=== PATIENT | female | born 1990 | race Caucasian/White ===

== ENCOUNTER 2016-12-24 15:37 | Emergency (ER) | payer MEDICAID, OTHER ==
[2016-12-24 15:38] VITALS: BMI 28.3
[2016-12-24 17:25] LABS: RBC URINE 3 /hpf (0-3); URINE BACTERIA RARE (<OCC); URINE BILIRUBIN NEGATIVE (NEGATIVE); URINE BLOOD NEGATIVE (NEGATIVE); URINE COLOR Yellow (YELLOW); URINE GLUCOSE (UA) NORMAL (Normal); URINE KETONE TRACE mg/dL (NEGATIVE); URINE LEUKOCYTE ESTERASE NEG Leu/uL (Negative); URINE PROTEIN NEGATIVE (NEGATIVE); WBC URINE 4 /hpf (0-5)
[2016-12-24] MEDS ORDERED: Albuterol 0.083% Inhal Sol (2.5 mg/3 mL) UD IH STA (17:35)
[2016-12-24] MEDS ORDERED: Albuterol 0.083% Inhal Sol (2.5 mg/3 mL) UD ONE (17:39)
--- NOTE | 2016-12-24 17:42 | C.PDOC ---
History Of Present Illness 26 yo female come in for evaluation of generalized bodyaches, malaise, chills, low grade fever, productive cough with clear sputum gradually developed for past few 3 days. Pt admits, use OTC medication without improvement. Otherwise, pt denies high fever, chills, headache, dizziness, neck apin, drooling, dysphagia, dyspnea, SOB, wheezing, abd. pain, V/D, UTI sx, denies recent travel or sick contact. At the time of evaluation, appears in pain. Time Seen by Provider: 12/24/16 15:54 Chief Complaint (Nursing): Cough, Cold, Congestion History Per: Patient Onset/Duration Of Symptoms: Gradual Current Symptoms Are (Timing): Worse Past Medical History Reviewed: Historical Data, Nursing Documentation, Vital Signs Vital Signs: Last Vital Signs Temp 98.7 F 12/24/16 15:48 Pulse 99 H 12/24/16 15:48 Resp 20 12/24/16 15:48 BP 113/75 12/24/16 15:48 Pulse Ox 99 12/24/16 15:48 - Medical History PMH: No Chronic Diseases, Gastritis Denies: Depression Surgical History: No Surg Hx - [facility] Procedures MONITORING NOS (09/13/14) Family History: States: No Known Family Hx - Social History Hx Tobacco Use: No Hx Alcohol Use: No Hx Substance Use: No - Immunization History Hx Tetanus Toxoid Vaccination: No Hx Influenza Vaccination: No Hx Pneumococcal Vaccination: No Review Of Systems Except As Marked, All Systems Reviewed And Found Negative. Constitutional: Positive for: Fever, Chills, Malaise ENT: Positive for: Nose Congestion, Throat Pain. Negative for: Ear Discharge Cardiovascular: Negative for: Chest Pain, Palpitations, Edema, Light Headedness Respiratory: Positive for: Cough. Negative for: Shortness of Breath, Wheezing Gastrointestinal: Positive for: Nausea. Negative for: Vomiting, Abdominal Pain , Diarrhea Musculoskeletal: Negative for: Neck Pain, Back Pain Skin: Negative for: Rash Neurological: Negative for: Weakness, Numbness, Altered Mental Status, Headache , Dizziness Physical Exam - Physical Exam Appears: Well, Non-toxic, No Acute Distress Skin: Normal Color, Warm, Dry, No Rash Eye(s): bilateral: Normal Inspection Ear(s): Bilateral: Normal Nose: Discharge (B/L nasal congestio nwith scant clear rhinorhea.) Oral Mucosa: Moist, No Drooling, No Trismus Tongue: Normal Appearing Throat: Erythema (mild B/L), No Exudate, No Drooling Neck: Normal, Normal ROM, Supple Chest: Symmetrical Cardiovascular: Rhythm Regular Respiratory: Normal Breath Sounds, No Stridor, No Wheezing Gastrointestinal/Abdominal: Normal Exam, Soft, No Tenderness, No Distention, No Guarding, No Rebound Back: Normal Inspection, No CVA Tenderness, No Vertebral Tenderness Extremity: Normal ROM, No Pedal Edema, No Deformity Neurological/Psych: Oriented x3, Normal Speech ED Course And Treatment O2 Sat by Pulse Oximetry: 99 Pulse Ox Interpretation: Normal - Radiology CXR: Interpreted by Me, Viewed By Me CXR Interpretation: Yes: No Acute Disease Progress Note: On re-evaluation, pt is afebrile, hemodynamicaly stable. Non- toxic. Tolerate po well in ED. PusleOx 99% RA. ENT: no acute findings. Lungs : CTA B/L, BS equal B/L. Abd: benign. Back: (-) CVA tenderness. Neurologicaly intact. CXR, Influenza A (-)- no acute finidngs. Pt advised. ref. to f/uw ith PM Din 2-3 days for re-eavl. return if any new changes. Disposition Counseled Patient/Family Regarding: Studies Performed, Diagnosis, Need For Followup, Rx Given - Disposition Referrals: Duyen Rico DO [[facility]] - Disposition: HOME/ ROUTINE Disposition Time: 17:30 Condition: STABLE Additional Instructions: Bedrest for 2 days Encourage fluids Take medication as prescribed Follow up with PMD in 2-3 days for re-evaluation. Return to ED if any worsening or new changes. Prescriptions: Benzonatate [Tessalon Perle] 100 mg PO TID #14 capsule Azithromycin [Zithromax] 250 mg PO DAILY #4 tab Instructions: Acute Bronchitis (ED) Forms: Work Excuse - Clinical Impression Clinical Impression: Bronchitis
--- NOTE | 2016-12-24 18:01 | RAD ---
HISTORY: Cough COMPARISON: 10/26/2015. TECHNIQUE: Chest PA and lateral FINDINGS: LUNGS: The lungs are well inflated and clear. PLEURA: No significant pleural effusion identified. No pneumothorax apparent. CARDIOVASCULAR: Normal. OSSEOUS STRUCTURES: No significant abnormalities. VISUALIZED UPPER ABDOMEN: Normal. OTHER FINDINGS: None. IMPRESSION: No active pulmonary disease.
[2016-12-24 18:06] VITALS: BP 126/72; PULSE 79; RESP 18; TEMP 98.2; O2SAT 98
== END 2016-12-24 18:05 | disposition home or self-care (01) ==
LOC: C.ER 15:37
DX: J40 Bronchitis, not specified as acute or chronic (principal)

== ENCOUNTER 2017-01-23 08:28 | Emergency (ER) | payer MEDICAID, OTHER ==
[2017-01-23 08:28] VITALS: BMI 28.3
[2017-01-23 08:48] VITALS: TEMP 98
[2017-01-23 09:15] LABS: RBC URINE 1 /hpf (0-3); URINE BILIRUBIN NEGATIVE (NEGATIVE); URINE BLOOD NEGATIVE (NEGATIVE); URINE COLOR Yellow (YELLOW); URINE GLUCOSE (UA) NORMAL (Normal); URINE KETONE NEGATIVE (NEGATIVE); URINE LEUKOCYTE ESTERASE NEG Leu/uL (Negative); URINE PROTEIN NEGATIVE (NEGATIVE); URINE UROBILINOGEN NORMAL mg/dL (0.2-1.0); WBC URINE 1 /hpf (0-5)
--- NOTE | 2017-01-23 09:24 | C.PDOC ---
History Of Present Illness 26-year-old female, PMHx includes Gastritis, presents to the emergency department with complaints of B/L breast pain that is described as "heaviness." Patient notes generalized body aches and nausea x2 days. Denies injury, shortness of breath or abdominal pain. States she is late on menses. No other complaints at this time. Time Seen by Provider: 01/23/17 08:50 Chief Complaint (Nursing): Medical Clearance History Per: Patient History/Exam Limitations: no limitations Onset/Duration Of Symptoms: Days (2) Current Symptoms Are (Timing): Still Present Severity: Mild Past Medical History Reviewed: Historical Data, Nursing Documentation, Vital Signs Vital Signs: Last Vital Signs Temp 98 F 01/23/17 08:37 Pulse 78 01/23/17 10:56 Resp 15 01/23/17 10:56 BP 132/72 01/23/17 10:56 Pulse Ox 99 01/23/17 10:56 - Medical History PMH: Gastritis - [facility] Procedures MONITORING NOS (09/13/14) Family History: States: Unknown Family Hx - Social History Hx Tobacco Use: No Hx Alcohol Use: No Hx Substance Use: No - Immunization History Hx Tetanus Toxoid Vaccination: No Hx Influenza Vaccination: No Hx Pneumococcal Vaccination: No Review Of Systems Except As Marked, All Systems Reviewed And Found Negative. Constitutional: Positive for: Malaise. Negative for: Fever Gastrointestinal: Positive for: Nausea. Negative for: Vomiting, Abdominal Pain Genitourinary: Negative for: Vaginal Discharge, Vaginal Bleeding Musculoskeletal: Negative for: Back Pain Skin: Negative for: Rash Neurological: Negative for: Weakness, Numbness, Headache, Dizziness Physical Exam - Physical Exam Appears: Non-toxic, No Acute Distress Skin: Warm, Dry, No Rash Head: Atraumatic, Normacephalic Eye(s): bilateral: Normal Inspection, PERRL Nose: Normal Oral Mucosa: Moist Lips: Normal Appearing Neck: Normal ROM Cardiovascular: Rhythm Regular Respiratory: No Accessory Muscle Use Gastrointestinal/Abdominal: Soft, No Tenderness Extremity: Normal ROM Neurological/Psych: Oriented x3, Normal Speech ED Course And Treatment O2 Sat by Pulse Oximetry: 100 Medical Decision Making Medical Decision Making: Impression Generalized body aches, nausea and pain in B/L breasts, requests preg test Plan: * Ibuprofen * Influenza AB * Urinalysis Reassess: test was negative. Flu negative Patient remained afebrile alert and oriented with stable vital signs during ER evaluation. On re-examination, patient is resting comfortably in no acute distress. Patient given follow up instructions. Instructed to return to ER if symptoms worsen or new symptoms arise. Disposition Counseled Patient/Family Regarding: Diagnosis, Need For Followup, Rx Given - Disposition Referrals: [facility] [Outside] [facility] [Outside] Disposition: HOME/ ROUTINE Disposition Time: 10:25 Condition: STABLE Additional Instructions: Follow up with your primary medical doctor or clinic in 2-5 days for further evaluation. Take medications as prescribed. Return to the emergency department at any time if symptoms persist or worsen. Prescriptions: Ibuprofen [Motrin] 600 mg PO Q8 #30 tab Instructions: Viral Syndrome (ED) Forms: Work Excuse Print Language: POLISH - POA Present On Arrival: None - Clinical Impression Clinical Impression: Viral syndrome, Negative test - Scribe Statement The provider has reviewed the documentation as recorded by the Kim Sam All medical record entries made by the Kim were at my direction and personally dictated by me. I have reviewed the chart and agree that the record accurately reflects my personal performance of the history, physical exam, medical decision making, and the department course for this patient. I have also personally directed, reviewed, and agree with the discharge instructions and disposition.
[2017-01-23 10:57] VITALS: BP 132/72; PULSE 78; RESP 15
[2017-01-23 16:30] VITALS: O2SAT 100
== END 2017-01-23 10:56 | disposition home or self-care (01) ==
LOC: C.ER 08:28
DX: B34.9 Viral infection, unspecified (principal); Z32.02 Encounter for pregnancy test, result negative

== ENCOUNTER 2017-06-18 18:48 | Emergency (ER) | payer MEDICAID ==
[2017-06-18 18:49] VITALS: BMI 28.3
[2017-06-18 19:38] VITALS: O2SAT 100
[2017-06-18 20:45] LABS: RBC URINE 1 /hpf (0-3); URINE BACTERIA RARE (<OCC); URINE BILIRUBIN NEGATIVE (NEGATIVE); URINE BLOOD NEGATIVE (NEGATIVE); URINE COLOR Yellow (YELLOW); URINE GLUCOSE (UA) NORMAL (Normal); URINE KETONE NEGATIVE (NEGATIVE); URINE LEUKOCYTE ESTERASE NEG Leu/uL (Negative); URINE PROTEIN NEGATIVE (NEGATIVE); URINE UROBILINOGEN NORMAL mg/dL (0.2-1.0); WBC URINE 3 /hpf (0-5)
--- NOTE | 2017-06-18 20:50 | C.PDOC ---
History Of Present Illness patient presents with mid epigastric Dull, aching discomfort. and ruq discomfort for about 3 days.No f/c. no diarrhea or constipation., Time Seen by Provider: 06/18/17 20:28 Chief Complaint (Nursing): Abdominal Pain History/Exam Limitations: no limitations Onset/Duration Of Symptoms: Days (3) Current Symptoms Are (Timing): Still Present Context: Other Severity: Moderate Pain Scale Rating Of: 4 Location Of Pain/Discomfort: Epigastric Radiation Of Pain To:: None Quality Of Discomfort: Dull, Aching Associated Symptoms: Nausea. denies: Fever, Chills, Diarrhea, Constipation Exacerbating Factors: None Alleviating Factors: None Last Bowel Movement: Yesterday Recent travel outside of the [place]: No Additional History Per: Family Abnormal Vaginal Bleeding: No Past Medical History Reviewed: Historical Data, Nursing Documentation, Vital Signs Vital Signs: Last Vital Signs Temp 99.1 F 06/18/17 19:31 Pulse 74 06/18/17 19:31 Resp 16 06/18/17 19:31 BP 135/92 H 06/18/17 19:31 Pulse Ox 100 06/18/17 21:08 - Medical History PMH: Gastritis Denies: Depression - [facility] Procedures MONITORING NOS (09/13/14) Family History: States: No Known Family Hx - Social History Hx Tobacco Use: No Hx Alcohol Use: No Hx Substance Use: No - Immunization History Hx Tetanus Toxoid Vaccination: No Hx Influenza Vaccination: No Hx Pneumococcal Vaccination: No Review Of Systems Constitutional: Negative for: Fever, Chills Eyes: Negative for: Redness ENT: Negative for: Throat Pain Cardiovascular: Negative for: Chest Pain Respiratory: Negative for: Shortness of Breath Gastrointestinal: Positive for: Nausea, Abdominal Pain. Negative for: Vomiting Genitourinary: Negative for: Dysuria Musculoskeletal: Negative for: Back Pain Skin: Negative for: Rash, Lesions Neurological: Negative for: Weakness Psych: Negative for: Anxiety Physical Exam - Physical Exam Appears: Non-toxic, No Acute Distress Skin: Warm, Dry Head: Normacephalic Eye(s): bilateral: Normal Inspection Oral Mucosa: Moist Neck: Supple Chest: Symmetrical Cardiovascular: Rhythm Regular Respiratory: No Rales, No Rhonchi, No Wheezing Gastrointestinal/Abdominal: Soft, No Tenderness, No Distention Back: No CVA Tenderness Extremity: Normal ROM Extremity: Bilateral: Atraumatic Pulses: Left Dorsalis Pedis: Normal, Right Dorsalis Pedis: Normal Neurological/Psych: Oriented x3, Normal Speech, Normal Cognition Gait: Steady ED Course And Treatment - Laboratory Results Result Diagrams: 06/18/17 21:07 06/18/17 21:07 O2 Sat by Pulse Oximetry: 100 Pulse Ox Interpretation: Normal Reevaluation Time: 23:39 Reassessment Condition: Improved Medical Decision Making Medical Decision Making: Upon provider reevaluation patient is feeling better, is medically stable, and requires no further treatment in the ED at this time. Patient will be discharged home with Rx for miralalx and zofran . Counseling was provided and all questions were answered regarding diagnosis and need for follow up with the referred clinic. There is agreement to discharge plan. Return if symptoms persist or worsen. Disposition Counseled Patient/Family Regarding: Studies Performed, Diagnosis, Need For Followup, Rx Given - Disposition Referrals: [facility] [Outside] [facility] [Outside] Disposition: HOME/ ROUTINE Disposition Time: 20:50 Condition: FAIR Prescriptions: Ondansetron ODT [Zofran ODT] 1 odt PO BID PRN #6 odt PRN Reason: Nausea/Vomiting Polyethylene Glycol 3350 [Miralax] 17 gm PO DAILY #270 ml Instructions: Abdominal Pain (ED), Gas and Bloating (ED), Constipation (DC) Forms: [facility] (Yoruba) Print Language: TOGOLESE - Clinical Impression Clinical Impression: Abdominal pain, Constipation
[2017-06-18] MEDS ORDERED: Sodium Chloride 0.9% 1,000 ML IV ONE (20:53)
[2017-06-18 21:11] LABS: BASO % 0.4 % (0.0-2.0); EOS # 0.2 K/uL (0.0-0.7); EOS % 1.5 % (0.0-4.0); HEMATOCRIT 41.7 % (34.0-47.0); LYMPH # 4.2 K/uL (1.0-4.3); LYMPH % 39.7 % (20.0-40.0); MEAN CELL VOLUME 86.7 fL (81.0-99.0); MEAN CORPUSCULAR HEMOGLOBIN 29.6 pg (27.0-31.0); MEAN CORPUSCULAR HGB CONC 34.1 g/dL (33.0-37.0); MEAN PLATELET VOLUME 9.3 fL (7.2-11.7); MONO # 0.7 K/uL (0.0-0.8); MONO % 7.1 % (0.0-10.0); NRBC % 0.1 % (0.0-2.0); RED CELL DISTRIBUTION WIDTH 13.6 % (11.5-14.5); WHITE BLOOD COUNT 10.5 K/uL (4.8-10.8)
[2017-06-18] MEDS ORDERED: Sodium Chloride 0.9% 1,000 ML ONE (21:12)
[2017-06-18 21:27] LABS: ALB/GLOB RATIO 1.4 (1.0-2.1); ALKALINE PHOSPHATASE 41 U/L (38-126); ALT/SGPT 22 U/L (9-52); AST/SGOT 23 U/L (14-36); BLOOD UREA NITROGEN 13 mg/dL (7-17); CALCIUM 9.5 mg/dl (8.6-10.4); CARBON DIOXIDE 24 mmol/L (22-30); CHLORIDE 101 mmol/L (98-107); GFR AFRICAN-AMERICAN > 60; GLUCOSE,RANDOM 80 mg/dL (65-105); POTASSIUM 3.9 mmol/L (3.6-5.2); SODIUM 139 mmol/L (132-148); TOTAL PROTEIN 7.6 g/dL (6.3-8.3)
[2017-06-18] MEDS ORDERED: Iodixanol 320 MG/ML 100 ML BOTTLE IV ONE (21:48)
--- NOTE | 2017-06-18 22:47 | CT ---
EXAM: CT Abdomen and Pelvis With Intravenous Contrast CLINICAL HISTORY: 27 years old, female; Pain; Abdominal pain; Flank; Right upper quadrant (ruq); Additional info: Ruq, suprapubic pain TECHNIQUE: Axial computed tomography images of the abdomen and pelvis with intravenous contrast. All CT scans at this facility use one or more dose reduction techniques, viz.: automated exposure control; ma/kV adjustment per patient size (including targeted exams where dose is matched to indication; i.e. head); or iterative reconstruction technique. Coronal and sagittal reformatted images were created and reviewed. CONTRAST: 100 mL of visipaque 320 administered intravenously. COMPARISON: CT - ABD PELVIS PO IV CONTRAST 10/26/2015 6:50:45 PM FINDINGS: Lower thorax: There is minimal bibasilar atelectasis. ABDOMEN: Liver: There are no focal liver lesions present. Gallbladder and bile ducts: The gallbladder is contracted but otherwise normal. No calcified stones. No ductal dilation. Pancreas: The pancreas is normal. No ductal dilation. Spleen: The spleen is normal. Adrenals: The adrenal glands are normal. Kidneys and ureters: The kidneys are normal. No hydronephrosis. Stomach and bowel: Stomach is decompressed. Colonic constipation is present. There is no evidence of intestinal obstruction. No mucosal thickening. Appendix: A normal appendix is identified. PELVIS: Bladder: The bladder is normal. Reproductive: The uterus is normal. The ovaries are normal. ABDOMEN and PELVIS: Intraperitoneal space: There is no evidence of free intraperitoneal fluid. There is no free intraperitoneal air. Bones/joints: No acute fracture. No dislocation. Soft tissues: There is tiny fat-containing periumbilical hernia. There is diastases of the rectus musculature. Vasculature: The aorta is normal. No abdominal aortic aneurysm. Lymph nodes: There are multiple nonspecific enlarged lymph nodes. IMPRESSION: No acute findings.
[2017-06-19 00:05] VITALS: BP 118/79; PULSE 61; RESP 18; TEMP 97.6
== END 2017-06-19 00:06 | disposition home or self-care (01) ==
LOC: C.ER 18:48
DX: K59.00 Constipation, unspecified (principal); R10.13 Epigastric pain
CPT/HCPCS: 74177; 80053; 81001; 83690; 84703; 85025; 85610; 85730; 96361; 96374; 96375; 99285; J1885; J2270; J2405; J7040; Q9967

== ENCOUNTER 2017-12-30 20:41 | Emergency (ER) | payer MEDICAID ==
[2017-12-30 20:41] VITALS: BMI 28.3
[2017-12-30 20:55] VITALS: PULSE 72; TEMP 97.8; O2SAT 100
[2017-12-30 21:33] LABS: BASO # 0.1 K/uL (0.0-0.2); BASO % 0.7 % (0.0-2.0); EOS # 0.2 K/uL (0.0-0.7); EOS % 1.5 % (0.0-4.0); HEMOGLOBIN 13.1 g/dL (11.0-16.0); LYMPH # 3.8 K/uL (1.0-4.3); LYMPH % 37.8 % (20.0-40.0); MEAN CELL VOLUME 87.9 fL (81.0-99.0); MEAN CORPUSCULAR HEMOGLOBIN 30.7 pg (27.0-31.0); MEAN PLATELET VOLUME 9.6 fL (7.2-11.7); MONO # 0.8 K/uL (0.0-0.8); MONO % 7.6 % (0.0-10.0); NEUT # 5.2 K/uL (1.8-7.0); NEUT % 52.4 % (50.0-75.0); NRBC % 0.2 % (0.0-2.0); RBC 4.27 Mil/uL (3.80-5.20); RED CELL DISTRIBUTION WIDTH 13.7 % (11.5-14.5)
--- NOTE | 2017-12-30 21:39 | C.PDOC ---
History Of Present Illness 27 year old female, who is currently 6 weeks (), presents to the ED for evaluation of abdominal pain and vaginal bleeding which began earlier today. Patient states she took an at-home test which was positive. She denies fever, chills, and has no other complaints at this time. Time Seen by Provider: 12/30/17 21:23 Chief Complaint (Nursing): Female Genitourinary History Per: Patient History/Exam Limitations: no limitations Onset/Duration Of Symptoms: Hrs Current Symptoms Are (Timing): Still Present Quality Of Discomfort: "Pain" Associated Symptoms: denies: Fever, Chills Additional History Per: Patient Abnormal Vaginal Bleeding: Yes : 4 Para: 1 Past Medical History Reviewed: Historical Data, Nursing Documentation, Vital Signs Vital Signs: Last Vital Signs Temp 97.8 F 12/30/17 23:39 Pulse 72 12/30/17 23:39 Resp 22 12/30/17 23:39 BP 117/73 12/30/17 23:39 Pulse Ox 100 12/30/17 23:39 - Medical History PMH: Gastritis Denies: Depression Surgical History: No Surg Hx - [facility] Procedures MONITORING NOS (09/13/14) Family History: States: Unknown Family Hx - Social History Hx Tobacco Use: No Hx Alcohol Use: No Hx Substance Use: No - Immunization History Hx Tetanus Toxoid Vaccination: No Hx Influenza Vaccination: Yes Hx Pneumococcal Vaccination: No Review Of Systems Constitutional: Negative for: Fever, Chills Gastrointestinal: Positive for: Abdominal Pain Genitourinary: Positive for: Vaginal Bleeding Physical Exam - Physical Exam Appears: Non-toxic, No Acute Distress Skin: Normal Color, Warm, Dry Head: Atraumatic, Normacephalic Eye(s): bilateral: Normal Inspection Oral Mucosa: Moist Neck: Supple Chest: Symmetrical, No Deformity, No Tenderness Cardiovascular: Rhythm Regular, No Murmur Respiratory: Normal Breath Sounds, No Rales, No Rhonchi, No Wheezing Gastrointestinal/Abdominal: Soft, Tenderness (suprapubic ), No Guarding, No Rebound Extremity: Normal ROM, Capillary Refill (less than 2 seconds ) Neurological/Psych: Oriented x3, Normal Speech, Normal Cognition ED Course And Treatment - Laboratory Results Result Diagrams: 12/30/17 21:28 12/30/17 21:28 O2 Sat by Pulse Oximetry: 100 (on RA) Pulse Ox Interpretation: Normal - CT Scan/US Pelvic/Transvag US Other Rad Studies (CT/US): Read By Radiologist, Radiology Report Reviewed CT/US Interpretation: FINDINGS: Gestation: No intrauterine gestational sac. Uterus/cervix: Endometrium: 0.7 cm in thickness. Closed cervix. Ovaries: RIGHT ovary: 0.8 x 0.7 x 0.6 hypoechoic lesion with internal. echoes. LEFT ovary: Normal. No adnexal masses. Free fluid: No significant free fluid. . IMPRESSION: 1. No intrauterine gestation. DDX: Early IUP, missed , ectopic. . 2. Probable complex right ovarian cyst/follicle. . Dictated By: Trino Argueta MD. Dictated Date/Time: 12/30/172257. Signed By: Trino Argueta MD. Date Signed: 12/30/172257. Transcribed By: Efizity. Transcribe Date/Time: 12/30/172257 Medical Decision Making Medical Decision Making: ro ectopic vs ab Progress: Bloodwork, UA, Transvaginal US ordered. Tylenol PO administered. Labs reviewed: Blood work is unremarkable. Urine shows + blood and RBC. US findings discussed w/ patient, all questions answered. 11:29pm Case discussed with Dr. Cinthya Rodriguez, who recommends 2 day return or follow up outpt. explained with tranlator that possiblity of ectopic exists. pt verbalizes understanding. . Disposition Discussed With Dr.: Cinthya Rodriguez Doctor Will See Patient In The: Office Counseled Patient/Family Regarding: Studies Performed, Diagnosis, Need For Followup - Disposition Referrals: [facility] [Outside] [facility] [Outside] [facility] [Outside] [facility] [Outside] Duyen Rico DO [Primary Care Provider] - Disposition: HOME/ ROUTINE Disposition Time: 12:00 Condition: STABLE Additional Instructions: please follow up with your doctor. return toe r with wrosening symptoms or concerns. you will need repeat lab work and us in 2 days. you can follow up with your obgyn or in er. we have not excluded the possibility of an ectopic (pregnany in the wrong place). return to any er with any worsening bleeding, pain or any concern. Instructions: Threatened Miscarriage (DC) Forms: [employer] (Irish) - Clinical Impression Clinical Impression: Threatened miscarriage - Scribe Statement The provider has reviewed the documentation as recorded by the Scribe (Parul Rodriguez) Provider Attestation: All medical record entries made by the Scribe were at my direction and personally dictated by me. I have reviewed the chart and agree that the record accurately reflects my personal performance of the history, physical exam, medical decision making, and the department course for this patient. I have also personally directed, reviewed, and agree with the discharge instructions and disposition.
[2017-12-30 21:46] LABS: ALB/GLOB RATIO 1.3 (1.0-2.1); ALBUMIN 3.7 g/dL (3.5-5.0); ALT/SGPT 15 U/L (9-52); AST/SGOT 16 U/L (14-36); BLOOD UREA NITROGEN 9 mg/dL (7-17); CALCIUM 8.8 mg/dl (8.6-10.4); GFR AFRICAN-AMERICAN > 60; GFR NON-AFRICAN AMERICAN > 60
[2017-12-30 21:59] LABS: SQUAMOUS EPITHIAL 1 /hpf (0-5); URINE AMORPHOUS SEDIMENT FEW /ul (<OCC); URINE BACTERIA RARE (<OCC); URINE BILIRUBIN NEGATIVE (NEGATIVE); URINE BLOOD 2+ (NEGATIVE); URINE CLARITY Hazy (Clear); URINE COLOR Red (YELLOW); URINE GLUCOSE (UA) NORMAL (Normal); URINE LEUKOCYTE ESTERASE NEG Leu/uL (Negative); URINE PROTEIN NEGATIVE (NEGATIVE); URINE UROBILINOGEN NORMAL mg/dL (0.2-1.0)
--- NOTE | 2017-12-30 22:59 | US ---
EXAM: US , Transvaginal CLINICAL HISTORY: 27 years old, female; Pain; Abdominal pain; Other: Not specified; Additional info: Abd pain and TECHNIQUE: Real-time transvaginal obstetrical ultrasound of the maternal pelvis and a first trimester with image documentation. Transvaginal imaging was used for better evaluation of the fetus and adnexa. COMPARISON: No relevant prior studies available. FINDINGS: Gestation: No intrauterine gestational sac. Uterus/cervix: Endometrium: 0.7 cm in thickness. Closed cervix. Ovaries: RIGHT ovary: 0.8 x 0.7 x 0.6 hypoechoic lesion with internal echoes. LEFT ovary: Normal. No adnexal masses. Free fluid: No significant free fluid. IMPRESSION: 1. No intrauterine gestation. DDX: Early IUP, missed , ectopic . 2. Probable complex right ovarian cyst/follicle.
[2017-12-30 23:41] VITALS: BP 117/73; RESP 22
== END 2017-12-30 23:43 | disposition home or self-care (01) ==
LOC: C.ER 20:41 → SUPCPDRO 20:41 → C.ER 23:43
DX: O20.0 Threatened abortion (principal); Z3A.01 Less than 8 weeks gestation of pregnancy

== ENCOUNTER 2018-01-02 11:30 | Emergency (ER) | payer MEDICAID ==
[2018-01-02 11:30] VITALS: BMI 28.3
[2018-01-02 11:46] VITALS: RESP 16; TEMP 97.8
--- NOTE | 2018-01-02 13:35 | C.PDOC ---
History Of Present Illness 27 year old female, , 6wks , presents to the ED for re-evaluation of abdominal pain and vaginal bleeding developed 12/30/17 when was originally seen in ED. Patient reports, vaginal bleeding worsen, noted clots now, (+) diffuse cramping lower abdominal pain, lower back pain. Otherwise, pt denies fever, chills, V/D, UTI sx, denies previous hx of ectopic . At the time of evaluation, pt appears comfortable, not in any apparent distress. FYI: Records from 12/30/17 review: Blood work review, no anemia, Beta dalton - 105.26, Blood type A positive US results; FINDINGS: Gestation: No intrauterine gestational sac. Uterus/cervix: Endometrium: 0.7 cm in thickness. Closed cervix. Ovaries: RIGHT ovary: 0.8 x 0.7 x 0.6 hypoechoic lesion with internal echoes. LEFT ovary: Normal. No adnexal masses. Free fluid: No significant free fluid. IMPRESSION: 1. No intrauterine gestation. DDX: Early IUP, missed , ectopic . 2. Probable complex right ovarian cyst/follicle. Dictated By: Trino Argueta MD Dictated Date/Time: 12/30/172257 Time Seen by Provider: 01/02/18 12:26 Chief Complaint (Nursing): Abdominal Pain History Per: Patient Past Medical History Reviewed: Historical Data, Nursing Documentation, Vital Signs Vital Signs: Last Vital Signs Temp 97.8 F 01/02/18 11:41 Pulse 72 01/02/18 11:41 Resp 16 01/02/18 11:41 BP 124/80 01/02/18 11:41 Pulse Ox 99 01/02/18 13:49 - Medical History PMH: No Chronic Diseases, Gastritis Denies: Depression Surgical History: No Surg Hx - [facility] Procedures MONITORING NOS (09/13/14) Family History: States: Unknown Family Hx - Social History Hx Tobacco Use: No Hx Alcohol Use: No Hx Substance Use: No - Immunization History Hx Tetanus Toxoid Vaccination: No Hx Influenza Vaccination: Yes Hx Pneumococcal Vaccination: No Review Of Systems Except As Marked, All Systems Reviewed And Found Negative. Constitutional: Negative for: Fever, Chills ENT: Negative for: Ear Discharge, Nose Discharge, Throat Pain Cardiovascular: Negative for: Chest Pain, Palpitations, Edema, Light Headedness Respiratory: Negative for: Cough, Shortness of Breath, Hemoptysis, Wheezing Gastrointestinal: Positive for: Abdominal Pain. Negative for: Nausea, Vomiting , Diarrhea Genitourinary: Positive for: Vaginal Bleeding. Negative for: Vaginal Discharge Musculoskeletal: Positive for: Back Pain Skin: Negative for: Rash Neurological: Negative for: Altered Mental Status, Headache, Dizziness Physical Exam - Physical Exam Appears: Well, Non-toxic, No Acute Distress Skin: Normal Color, Warm, Dry, No Rash Head: Normacephalic Eye(s): bilateral: PERRL Nose: No Flaring, No Discharge Oral Mucosa: Moist, No Drooling Throat: No Erythema, No Drooling Neck: Trachea Midline, No Supple Cardiovascular: Rhythm Regular, No Murmur Respiratory: No Decreased Breath Sounds, No Accessory Muscle Use, No Stridor, No Wheezing Gastrointestinal/Abdominal: Soft, No Tenderness, No Distention, No Guarding Back: No CVA Tenderness Extremity: Normal ROM, No Deformity, No Swelling Neurological/Psych: Oriented x3, Normal Speech ED Course And Treatment O2 Sat by Pulse Oximetry: 99 Pulse Ox Interpretation: Normal - CT Scan/US Transvaginal US Other Rad Studies (CT/US): Radiology Report Reviewed CT/US Interpretation: IMPRESSION: No evidence of intrauterine gestation. Unremarkable pelvic ultrasound. Progress Note: On re-evaluation, pt is afebrile, hemodynamicaly stable. NO tachycardia or hypotension. NOn-toxic. Ambulatory in ED with stable gait. ENT : no acute findings. neck: Supple, (-) JVD, (-) carotid bruits B/L. Lungs: CTA B/L, BS equal B/L. Abd: benign, (-) guarding, (-) rebound, (-) localized tenderness. back: (-) CVA tenderness. beta quant today- 26.69 compare to , dropped twise. US results review and c/w to 12/30/17, no IUP seem, (+) ovarian flow B/L. Pt has clinical findings c/w miscarriage r/o complete sponatenous . Pt advised and ref. to f/u with IT SECURITY SPECIALIST in 1-2 days for re- eavl. return to ED if any worsening or new changes. Disposition Counseled Patient/Family Regarding: Studies Performed, Diagnosis, Need For Followup - Disposition [facility] Disposition: HOME/ ROUTINE Disposition Time: 13:43 Condition: STABLE Additional Instructions: Encourage fluids Follow up with IT SECURITY SPECIALIST In 1-2 days for re-evaluation. Return to ED if any worsening or new changes. Instructions: Miscarriage (DC) Forms: [employer] (Maltese) Print Language: ENGLISH - Clinical Impression Clinical Impression: Miscarriage
--- NOTE | 2018-01-02 13:57 | US ---
HISTORY: vaginal bleeding, COMPARISON: None available. TECHNIQUE: Transvaginal pelvic ultrasound was performed. FINDINGS: UTERUS: Measures 7.9 x 4.0 x 5.0 cm. Anteverted, normal in size and appearance. No fibroid or other mass lesion seen. ENDOMETRIUM: Measures 5.0 mm in diameter. Normal in appearance. No evidence of intrauterine gestation. CERVIX: No cervical abnormality identified. RIGHT OVARY: Measures 2.8 x 2.1 x 1.7 cm. No solid mass. Normal flow. LEFT OVARY: Measures 3.2 x 1.3 x 3.1 cm. No solid mass. Normal flow. FREE FLUID: No significant free fluid noted. OTHER FINDINGS: None. IMPRESSION: No evidence of intrauterine gestation. Unremarkable pelvic ultrasound.
[2018-01-02 14:15] VITALS: BP 115/78; PULSE 78; O2SAT 98
== END 2018-01-02 14:15 | disposition home or self-care (01) ==
LOC: C.ER 11:30
DX: O03.9 Complete or unspecified spontaneous abortion without complication (principal)

== ENCOUNTER 2018-12-21 14:41 | Emergency (ER) | payer MEDICAID ==
[2018-12-21 14:41] VITALS: BMI 28.3
[2018-12-21 14:47] VITALS: RESP 16; TEMP 98.4; O2SAT 99
--- NOTE | 2018-12-21 15:44 | C.PDOC ---
History Of Present Illness Patient is a 28 year old female who presents to the ED c/o bilateral leg swelling and back pain radiating to the front for the past 2 days. Patient states that she thinks it may be an infection. She denies any fever or vomiting. <LeticiaShantell C - Last Filed: 12/21/18 17:48> <Trina Ragsdale - Last Filed: 12/21/18 15:44> History Per: Patient History/Exam Limitations: no limitations Onset/Duration Of Symptoms: Days (2) Current Symptoms Are (Timing): Still Present Quality Of Discomfort: "Pain" (back pain ) Recent travel outside of the [place]: No Additional History Per: Patient <LeticiaShantell C - Last Filed: 12/21/18 17:48> Time Seen by Provider: 12/21/18 15:09 Chief Complaint (Nursing): Back Pain Past Medical History Vital Signs: Last Vital Signs Temp 98.4 F 12/21/18 14:43 Pulse 81 12/21/18 14:43 Resp 16 12/21/18 14:43 BP 133/84 12/21/18 14:43 Pulse Ox 99 12/21/18 14:43 - Medical History PMH: Gastritis Denies: Depression - [facility] Procedures MONITORING NOS (09/13/14) Family History: States: Unknown Family Hx - Social History Hx Tobacco Use: No Hx Alcohol Use: No Hx Substance Use: No - Immunization History Hx Tetanus Toxoid Vaccination: No Hx Influenza Vaccination: Yes Hx Pneumococcal Vaccination: No <Trina Ragsdale - Last Filed: 12/21/18 15:44> Reviewed: Historical Data, Nursing Documentation, Vital Signs Vital Signs: Last Vital Signs Temp 98.4 F 12/21/18 14:43 Pulse 81 12/21/18 14:43 Resp 16 12/21/18 14:43 BP 133/84 12/21/18 14:43 Pulse Ox 99 12/21/18 15:44 Surgical History: No Surg Hx - [facility] Procedures MONITORING NOS (09/13/14) <Shantell Kelly - Last Filed: 12/21/18 17:48> Review Of Systems Except As Marked, All Systems Reviewed And Found Negative. Constitutional: Positive for: Chills. Negative for: Fever Gastrointestinal: Negative for: Vomiting Musculoskeletal: Positive for: Back Pain (radiating towards front ), Leg Pain (leg swelling ), Foot Pain <Taisha Kellyjolazara Pinto - Last Filed: 12/21/18 17:48> Physical Exam - Physical Exam Appears: Non-toxic, No Acute Distress Skin: Normal Color, Warm, Dry Head: Atraumatic, Normacephalic Neck: Normal ROM, Supple Chest: Symmetrical, No Deformity Cardiovascular: Rhythm Regular, No Murmur Respiratory: Normal Breath Sounds, No Rales, No Rhonchi, No Wheezing Gastrointestinal/Abdominal: Soft, No Tenderness Back: No CVA Tenderness, Other (left sided lumbar and parathorcic tenderness) Extremity: Normal ROM, Pedal Edema Neurological/Psych: Oriented x3, Normal Speech, Normal Cognition <IsabellazhaoTaishaShantell C - Last Filed: 12/21/18 17:48> ED Course And Treatment O2 Sat by Pulse Oximetry: 99 <Trina Ragsdale - Last Filed: 12/21/18 15:44> - Laboratory Results Lab Results: Urine Color Yellow (YELLOW) 12/21/18 16:10 Urine Clarity Clear (Clear) 12/21/18 16:10 Urine pH 6.0 (5.0-8.0) 12/21/18 16:10 Ur Specific [place] 1.015 (1.003-1.030) 12/21/18 16:10 Urine Protein Negative mg/dL (NEGATIVE) 12/21/18 16:10 Urine Glucose (UA) Normal mg/dL (Normal) 12/21/18 16:10 Urine Ketones Negative mg/dL (NEGATIVE) 12/21/18 16:10 Urine Blood Negative (NEGATIVE) 12/21/18 16:10 Urine Nitrate Negative (NEGATIVE) 12/21/18 16:10 Urine Bilirubin Negative (NEGATIVE) 12/21/18 16:10 Urine Urobilinogen Normal mg/dL (0.2-1.0) 12/21/18 16:10 Ur Leukocyte Esterase Neg Bg/uL (Negative) 12/21/18 16:10 Urine WBC (Auto) 1 /hpf (0-5) 12/21/18 16:10 Urine RBC (Auto) < 1 /hpf (0-3) 12/21/18 16:10 Ur Squamous Epith Cells 2 /hpf (0-5) 12/21/18 16:10 Urine Bacteria Rare (<OCC) 12/21/18 16:10 Urine HCG, Qual Negative (NEGATIVE) 12/21/18 16:10 Urine HCG, Qual Negative (NEGATIVE) 12/21/18 16:10 O2 Sat by Pulse Oximetry: 99 (on RA) Pulse Ox Interpretation: Normal Progress Note: Plan: Urine Culture. Urinalysis HCG. Urinalysis. Motrin 800mg PO. Lidoderm 1ea TD. Pyridium 200mg PO. Decadron 10mg IM. Flexeril 10mg PO <Shantell Kelly - Last Filed: 12/21/18 17:48> Medical Decision Making Medical Decision Making: The legs have no pitting edema or tenderness. No signs of cellulitis at this time. On re-exam, the patient reports improvement of symptoms. Lungs are CTA, heart is RRR, abdomen is soft, non-tender and tolerating PO well. Pt is ambulatory in the ED with steady gait. Follow up with the medical doctor within 1-2 days. Return if worsened. <Shantell Kelly - Last Filed: 12/21/18 17:48> Disposition <Trina Ragsdale - Last Filed: 12/21/18 15:44> - Disposition Disposition Time: 17:41 <Shantell Kelly - Last Filed: 12/21/18 17:48> - Disposition Referrals: Ramez Sen MD [Non-Staff] - [facility] [Outside] Disposition: HOME/ ROUTINE Condition: GOOD Additional Instructions: Follow up with the medical doctor within 1-2 days. Return if worsened. Prescriptions: Diazepam [Valium] 2 mg PO TID #21 tab Naproxen [Naprosyn] 500 mg PO BID #20 tab Instructions: Low Back Pain (DC) Forms: Work Excuse Print Language: BURMESE - Clinical Impression Clinical Impression: Low back pain, Pedal edema - PA / ART MUSEUM AIDE / Resident Statement MD/DO has examined the patient and agrees with the treatment plan. - Scribe Statement The provider has reviewed the documentation as recorded by the Charlieibotilio Beck All medical record entries made by the Scribe were at my direction and personally dictated by me. I have reviewed the chart and agree that the record accurately reflects my personal performance of the history, physical exam, medical decision making, and the department course for this patient. I have also personally directed, reviewed, and agree with the discharge instructions and disposition. <Shantell Kelly - Last Filed: 12/21/18 17:48>
[2018-12-21 16:20] LABS: HCG,QUALITATIVE URINE NEGATIVE (NEGATIVE)
[2018-12-21 16:26] LABS: SQUAMOUS EPITHIAL 2 /hpf (0-5); URINE BACTERIA RARE (<OCC); URINE BILIRUBIN NEGATIVE (NEGATIVE); URINE BLOOD NEGATIVE (NEGATIVE); URINE CLARITY Clear (Clear); URINE COLOR Yellow (YELLOW); URINE GLUCOSE (UA) NORMAL (Normal); URINE LEUKOCYTE ESTERASE NEG Leu/uL (Negative); URINE PROTEIN NEGATIVE (NEGATIVE); URINE UROBILINOGEN NORMAL mg/dL (0.2-1.0)
[2018-12-21] MEDS ORDERED: Dexamethasone 4 mg/1 ml IM STA (16:41)
[2018-12-21] MEDS ORDERED: Lidocaine 5% Patch TD STA (16:42)
[2018-12-21] MEDS ORDERED: Dexamethasone 4 mg/1 ml ONE (17:02)
[2018-12-21] MEDS ORDERED: Lidocaine 5% Patch TD ONE (17:02)
[2018-12-21 17:53] VITALS: BP 127/80; PULSE 66
== END 2018-12-21 17:50 | disposition home or self-care (01) ==
LOC: C.ER 14:41
DX: M54.5 Low back pain (principal); R60.0 Localized edema
CPT/HCPCS: 81001; 81025; 84703; 87086; 96372; 99285; J1100